=== PATIENT | male | born 1960 | race Caucasian/White ===

== ENCOUNTER → 2017-10-12 | Outpatient (CLI) | payer OTHER ==
[~2017-10-12] MED LIST: ALEVE220 M1 PO; ASPIR 8181 MG PO; DEPO-TESTO100 MG/1 M IM; DEPO-TESTO200 MG/1 M PO; FLEXERIL PO; HYDROCODON-ACE1 EAC7 PO; HYDROCODON-ACE1 EAC8 PO; HYDROCODONE-AP1 EA11 PO; IBUPROFEN200 M2 PO; LISINOPRIL5 MG PO; MOBIC7.5 MG PO; NEURONTIN 300300 M1 PO; OMEPRAZOLE40 MG PO; VICODIN 5-5001 EACH PO; WELLBUTRIN XL150 M1 PO
--- NOTE | 2017-10-18 14:44 | PAINCON ---
[address] [address] PAIN MANAGEMENT CONSULTATION Name: TARIK MARTE [id number] Admission: 10/12/17 Attend Phys: Boone Adrian MD Discharge: Date of : 58 Report #: [id number] THIS REPORT FOR: //name// CC: Lulu Yoo DATE OF SERVICE: 10/12/2017 CHIEF COMPLAINT: Low back pain and pain down in the low back area. HISTORY OF PRESENT ILLNESS: The patient is a 56-year-old gentleman, who has been followed in the pain clinic by Dr. Girma Zarate. This is my first visit with him. He has had pain and discomfort in the lower portion of his back with pain radiating down into his legs. He has undergone epidural steroid injections in the past and gleaned benefits from these. He returns today indicating that he is having low back pain with spasms and tightness down into his left buttocks. He is clean, pain relief with epidural steroid injections in the past. He rates his pain as a 2-3 at this juncture. Notes that the pain is worse when he is active as well as when he is walking stairs, bending, and lifting. Notes that use of the medications, heat, cold, rest, and massage were beneficial. He has not had any complications from the previous treatments. Generally, he receives about an 60%-80% improvement in his pain after epidural treatments. At this juncture, he would like to have his medications renewed and the possibility of proceeding in the near future with a lumbar epidural steroid injection. ALLERGIES: No known drug allergies. CURRENT MEDICATIONS: Include cyclobenzaprine 10 mg 1 p.o. t.i.d., gabapentin 3 tablets at bedtime for a total of 900 mg, hydrocodone 7.5 mg one p.o. q. 6 hours p.r.n., lisinopril 5 mg p.o., Meloxicam 7.5 mg daily, omeprazole 40 mg 1 cap before meals, and testosterone Depo 200 mg 1.5 mL weekly. PAST MEDICAL HISTORY: 1. Symptomatic lumbar radiculopathy, displacement of lumbar intervertebral disk with radiculopathy. 2. Lumbosacral spondylosis with radiculopathy. 3. Lumbar degeneration. 4. Chronic intractable pain. 5. Low testosterone level with testosterone injections. 6. Sleep apnea. The patient does use a CPAP machine. PAST SURGICAL HISTORY: Fingertip reattachment and left knee surgery. SOCIAL HISTORY: He is a [place]. He is working. [place] [address] PAIN MANAGEMENT CONSULTATION Name: TARIK MARTE [facility] [id number] Admission: 10/12/17 Attend Phys: Boone Adrian MD Discharge: Date of : 58 Report #: [id number] Denies use of alcoholic beverages. REVIEW OF SYSTEMS: Questionnaire indicate low back pain with pain radiating down into his legs, low back spasms, and tightness in the left buttocks. PAIN CLINIC ASSESSMENT: 1. History of arthritic pain in the low back. 2. Pain intensity 10/14. 3. Fall risk. The patient has not fallen in the last 3 months. 4. Blood thinner. The patient is not on a blood thinner. 5. Hypertension. The patient is being treated for hypertension. 6. Opioids greater than 6 months. The patient is on opioid medication and has a contract with the pain clinic. 7. Risk management tool. 8. Functional assessment tool. 9. Recreational drug use. The patient denies use of tobacco. 10. Alcohol use. The patient denies use of alcohol. 11. Second evaluation of left knee with removal of a bolus of suture. 12. Lumbosacral symptomatic lumbar radiculopathy, improves with epidural steroid injections, pain radiating down into the left buttocks. 13. Displacement of lumbar intervertebral disk with radiculopathy. 14. Lumbosacral spondylosis with radiculopathy. 15. Lumbar degeneration. 16. Chronic intractable pain. 17. Sleep apnea. PHYSICAL EXAMINATION: VITAL SIGNS: Blood pressure 146/88, heart rate 80, respiratory rate 16, room air saturation 96%, and temperature 98.1. Height 5 feet 7 inches, weight 223 pounds, and BMI is 33.4. GENERAL: A well-developed white male. Appearance appears normal/appropriate for his age. Orientation: The patient is alert and oriented x 3. Affect. The patient's affect is appropriate. HEENT: Normocephalic and atraumatic. The patient's eyes appear that he may have had strabismus as a child, slightly disconjugate gaze. Nasal without problem. Moist buccal membranes. NECK: Without masses or JVD. LUNGS: Clear to auscultation. HEART: Regular rate. ABDOMEN: Nontender. MUSCULOSKELETAL: Appears normal alignment without significant scoliosis, kyphosis, or lordosis. Walks with a slight antalgic gait, complaining of pain and discomfort in the left buttocks. Upper extremity muscle appear symmetric. Muscle strength is judged to be 5/5 without neurologic changes. Lower extremities 5/5. The patient has some low back pain and discomfort in the paraspinous area as well as some left buttock pain [place] [address] PAIN MANAGEMENT CONSULTATION Name: TARIK MARTE [facility] [id number] Admission: 10/12/17 Attend Phys: Boone Adrian MD Discharge: Date of : 58 Report #: [id number] states that he felt like there were some movements going in the lower portion of his back. He is considering seeing Dr. George in the future. Possibility of repeat disk replacement surgery or back fusion. RECOMMENDATIONS: We discussed treatment options with the patient. Risks and benefits of an epidural steroid injection were again reviewed. The patient has gleaned benefits from the injections in the past. States that he has been experiencing may be some movement in the lower portion of his back. He is considering seeing Dr. George in regards to the possibility of back surgery, fusion, or disk replacement. He would like to consider an epidural steroid injection. We will petition his insurance company in that regard. After precertification, we will consider an epidural steroid injection. Risks and benefits of the procedure are known to the patient and they include but are not limited to infection, headache, bleeding, muscle soreness, muscle trauma, and nerve damage. He will return to the pain clinic in the future, at which time we will proceed with an epidural steroid injection should he choose. A script for meloxicam, Flexeril, gabapentin, and Lucas have been rewritten. We would like to thank you for letting us to participate in his care. <ELECTRONICALLY SIGNED> By: Boone Adrian MD 10/18/17 1444 1712 0303N. Salazar Adrian MD /PMT
== END ==
LOC: M.PC 01:32
DX: M47.27 Other spondylosis with radiculopathy, lumbosacral region (principal); M51.16 Intervertebral disc disorders with radiculopathy, lumbar region; G47.30 Sleep apnea, unspecified; I10 Essential (primary) hypertension; Z79.891 Long term (current) use of opiate analgesic; Z72.89 Other problems related to lifestyle

== ENCOUNTER → 2017-11-09 | Outpatient (CLI) | payer OTHER ==
--- NOTE | 2017-11-28 08:16 | PAINCON ---
[address] [address] PAIN MANAGEMENT CONSULTATION Name: ESTUARDOTARIK G [id number] Admission: 11/09/17 Attend Phys: Boone Adrian MD Discharge: Date of : 58 Report #: [id number] THIS REPORT FOR: //name// CC: ISAC CURYR DO Isac Adrian DATE OF SERVICE: 11/09/2017 FOLLOWUP COMPLAINT: "Pain radiating down into the low back and my back feels more unstable." FOLLOWUP HISTORY: The patient is a 57-year-old gentleman who has been seen in the pain clinic in the past because of chronic back pain. He has been evaluated in the past. He has undergone epidural steroid injections and found that these were helpful. He returns today indicating that he continues to have some pain and discomfort in his low back with tightness and spasms, radiating down to the left buttocks area. Epidural injections in the past have been helpful. He denies any change in his bowel or bladder function. Continues to remain active and notes some worsening of his pain with walking stairs, bending, lifting, and other activities of daily living. Use of medications, heat, cold, and rest have been beneficial. Massage has been helpful as well. He generally receives about 60-80% improvement in his pain after epidural steroid injections. He has returned today with the intent of undergoing a lumbar epidural steroid injection to help control his pain and decrease his discomfort. ALLERGIES: No known drug allergies. CURRENT MEDICATIONS: Cyclobenzaprine 10 mg 1 p.o. t.i.d., gabapentin 300 mg 1 p.o. t.i.d. total of 900 per day, hydrocodone 7.5 mg 1 p.o. q. 6 hours p.r.n. pain, lisinopril 5 mg 1 p.o. daily, meloxicam 7.5 mg daily, omeprazole 40 mg 1 tablet before meals, Testosterone Depo 200 mg 1.5 mL weekly. PAIN CLINIC ASSESSMENT: 1. The patient does have some arthritic changes in his low back, associated with osteoarthritis. 2. Pain intensity: He rates his pain intensity as 6-7/10 today. 3. Vital signs: Blood pressure 154/99, heart rate 84, respiratory rate 16, room air saturation 94%, temperature 98. 4. Height 5 feet 7 inches, weight 212 pounds, BMI is 33. 5. The patient is not on a blood thinner. 6. Hypertension: The patient is being treated for hypertension. 7. Opioids greater than 6 months: The patient is receiving opioid medication from the pain clinic and has signed a contract. 8. Risk assessment tool. 9. Functional [place] [address] PAIN MANAGEMENT CONSULTATION Name: TARIK MARTE Room: [facility]#: [id number] Admission: 11/09/17 Attend Phys: Boone Adrian MD Discharge: Date of : 58 Report #: [id number] 10. Recreational drug use: The patient denies use of recreational drugs. 11. Alcohol: The patient denies use of alcoholic beverages. PHYSICAL EXAMINATION: GENERAL: The patient is a well-developed white male. He appears his stated age. He is alert and oriented x 3. Affect is appropriate. Speech is smooth/fluent. HEENT: Normocephalic, atraumatic. Extraocular eye muscles intact. Sclerae is nonicteric. Hearing is within normal limits. Mucous membranes are moist. The patient appears to have had strabismus as a child with a slightly disconjugate gaze. NECK: Without masses or JVD. LUNGS: Clear to auscultation. HEART: Regular rate, normal S1, S2. ABDOMEN: Nontender, without organomegaly. MUSCULOSKELETAL: Appears to have normal alignment without significant scoliosis, kyphosis, or lordosis. The patient walks with a slight antalgic gait, complaining of discomfort in his left buttocks. Upper extremity muscle bulk appears symmetrical. Muscles are judged to be 5/5 without neurological changes. Lower extremity muscle strength is 5/5. The patient has some low back pain and discomfort down into the paraspinous muscles at the L5 area as well. The patient has sensation of some movement in the lower portion of his low back area. IMPRESSION: 1. Lumbar radicular pain with pain radiating down into the L5-S1 area of his left leg with numbness and tingling. 2. Displacement of lumbar intervertebral disk with radiculopathy. 3. Lumbosacral spondylosis with radiculopathy. 4. Sleep apnea. 5. Chronic intractable pain. RECOMMENDATIONS: We discussed treatment options with the patient. Risks and benefits of an epidural steroid injection were discussed. Possible complications of the procedure were then reviewed. They could include but are not limited to infection, increased muscle soreness, bleeding, headache, nerve damage, spinal headache. The patient elects to proceed. PROCEDURE NOTE: The patient was assisted in getting on the fluoroscopy table. His back was sterilely prepped with a Betadine solution. Then, 0.25% bupivacaine was infiltrated into this area. Fluoroscopy used and the anterior, posterior, as well as a lateral approach was used to identify the L5-S1 left paraspinous area. A 0.25% bupivacaine was infiltrated. A 17-gauge Tuohy with loss of resistance technique was used to gain access to the epidural space. There was no CSF, heme, or paresthesia. Total of 80 mg Depo-Medrol, 40 mg triamcinolone, and 2 mL of 0.5% bupivacaine was injected. Total of 8 [place] [address] PAIN MANAGEMENT CONSULTATION Name: TARIK MARTE Room: [facility]#: [id number] Admission: 11/09/17 Attend Phys: Boone Adrian MD Discharge: Date of : 58 Report #: [id number] fluoroscopy time was used. The patient remained in the pain clinic for an appropriate amount of time. He will follow up in the future as needed. We would like to thank you for letting us participate in his care. We hope he continues to improve. <ELECTRONICALLY SIGNED> By: Boone Adrian MD 11/28/17 0816 2240 0547N. Salazar Adrian MD /PHYLLIS
== END | disposition home or self-care (01) ==
LOC: M.PC 01:34
DX: M51.16 Intervertebral disc disorders with radiculopathy, lumbar region (principal); M47.27 Other spondylosis with radiculopathy, lumbosacral region; G89.29 Other chronic pain; G47.33 Obstructive sleep apnea (adult) (pediatric); I10 Essential (primary) hypertension; Z79.899 Other long term (current) drug therapy; Z79.891 Long term (current) use of opiate analgesic

== ENCOUNTER → 2017-11-23 | Outpatient (CLI) | payer OTHER ==
--- NOTE | 2017-11-28 08:16 | PAINCON ---
[address] [address] PAIN MANAGEMENT CONSULTATION Name: ESTUARDOTARIK [id number] Admission: 11/23/17 Attend Phys: Boone Adrian MD Discharge: Date of : 58 Report #: [id number] THIS REPORT FOR: //name// CC: ISAC CURRY DO Isac Adrian DATE OF SERVICE: 11/23/2017 FOLLOWUP COMPLAINT: Pain improved, but there is still some numbness. This pain is going down the side of my leg, down the back of my leg and down into my leg with some numbness and tingling. FOLLOWUP HISTORY: The patient is a 57-year-old gentleman who has been seen in the pain clinic because of chronic back pain. He has undergone epidural steroid injection at the last visit. He notes that his pain is improved, but continues to be problematic. He states that this has been the case in the past. A second epidural steroid injection in a reasonable amount of time has been beneficial. Continues to have pain and discomfort, which radiates down the posterior portion of his left leg. Right leg is not involved. He has had no problems or changes with bowel or bladder dysfunction. States that he eats brand each morning. Keep his bowels regular. Notes that his pain is worse when he is walking stairs, bending, lifting and other activities of daily living. Find a cold, rest and heat can sometimes improved things. Overall, rates his pain as a 6/10 at this juncture. ALLERGIES: No known drug allergies. CURRENT MEDICATIONS: Cyclobenzaprine 10 mg 1 p.o. t.i.d., gabapentin 300 mg 1 p.o. t.i.d., hydrocodone 7.5 mg 1 p.o. q. 6 hours p.r.n. pain, lisinopril 5 mg 1 p.o., Meloxicam 7.5 mg daily, omeprazole 40 mg with meals, testosterone, Depo 200 mg 1.5 mL weekly. PAIN CLINIC ASSESSMENT: 1. The patient has some arthritic changes involving his left knee and had knee replacement. 2. Pain intensity 6/7. PHYSICAL EXAMINATION: VITAL SIGNS: Blood pressure is 139/99, heart rate 78, respiratory rate 16, room air saturation 95%, temperature 98.2. Height 5 feet 7 inches, weight 211 pounds, BMI is 33. The patient is not on a blood thinner. IMPRESSION: [place] [address] PAIN MANAGEMENT CONSULTATION Name: TARIK MARTE Room: [facility]#: [id number] Admission: 11/23/17 Attend Phys: Boone Adrian MD Discharge: Date of : 58 Report #: [id number] 1. Fall. The patient has not fallen in the last 3 months. 2. Hypertension. The patient is being treated for hypertension. 3. Opioids greater than 6 months. The patient is receiving opioid medications from the pain clinic and has a signed a contract. 4. Risk assessment tool. 5. Functional assessment tool. 6. Recreational drug use, denies. 7. Alcohol. Denies use of alcoholic beverages. PHYSICAL EXAMINATION: GENERAL: The patient is a well-developed white male. He appears his stated age. He is alert and oriented x 3. His affect is appropriate. His speech is fluent and smooth. HEENT: Normocephalic, atraumatic. Extraocular eye muscles intact. Sclerae nonicteric. Hearing is within normal limits. Mucous membranes are moist. The patient appears to have some strabismus changes with some disconjugate gaze. NECK: Without masses or JVD. LUNGS: Clear to auscultation. HEART: Regular rate with normal S1, S2. ABDOMEN: Nontender, without organomegaly. MUSCULOSKELETAL: Appears to have normal alignment without significant scoliosis, kyphosis or lordosis. The patient walks with a slight antalgic gait frame favoring his left leg. Complains of pain and discomfort down the left buttocks. Muscle strength is judged to be 5/5 for the major muscle groups in the lower extremity. Upper extremity muscle strength 5/5 for the major muscle groups with symmetry without sensory changes. IMPRESSION: 1. Lumbar radiculopathy involving the left leg in the L5-S1 area with continued pain down the left leg with numbness and tingling. 2. Displacement of lumbar intervertebral disk with radiculopathy. 3. Lumbosacral spondylosis with radiculopathy. 4. Sleep apnea. 5. Hypertension. 6. Low testosterone. RECOMMENDATIONS: We discussed treatment options with the patient. Risks and benefits of an epidural steroid injection were again reviewed. Possible complication of the procedure were discussed. They could include, but are not limited to infection, increased muscle soreness, bleeding, nerve damage, paresis, spinal headache. The patient elects to proceed. PROCEDURE NOTE: The patient was placed in the prone position. Fluoroscopy was used to identify the L5-S1 interspace using anterior, posterior as well as lateral viewing. The area had been sterilely prepped with Betadine. 0.25% bupivacaine was infiltrated in the L5-S1 area on the left parasp[place] [address] PAIN MANAGEMENT CONSULTATION Name: TARIK MARTE Room: [facility]#: [id number] Admission: 11/23/17 Attend Phys: Boone Adrian MD Discharge: Date of : 58 Report #: [id number] total of 80 mg Depo-Medrol, 40 mg triamcinolone and 2 mL of 0.25% bupivacaine was injected. Total of 6 seconds fluoroscopy time was used. A Band-Aid was applied. There was no bleeding. He was taken to the recovery room where he remained for an appropriate amount of time. He will follow up in the future as needed. We would like to thank you for letting us participate in his care. We hope he continues to improve pain had decreased to 0 at the time of discharge. <ELECTRONICALLY SIGNED> By: Boone Adrian MD 11/28/17 0816 0950 1458N. Salazar Adrian MD /[facility]
== END | disposition home or self-care (01) ==
LOC: M.PC 03:24
DX: M51.16 Intervertebral disc disorders with radiculopathy, lumbar region (principal); M47.27 Other spondylosis with radiculopathy, lumbosacral region; G89.29 Other chronic pain; G47.33 Obstructive sleep apnea (adult) (pediatric); I10 Essential (primary) hypertension; E29.1 Testicular hypofunction; Z79.899 Other long term (current) drug therapy; Z79.891 Long term (current) use of opiate analgesic; Z98.890 Other specified postprocedural states

== ENCOUNTER → 2018-01-11 | Outpatient (CLI) | payer OTHER ==
--- NOTE | 2018-01-17 14:14 | PAINCON ---
[address] [address] PAIN MANAGEMENT CONSULTATION Name: ESTUARDOTARIK Room: [facility] Krunal#: [id number] Admission: 01/11/18 Attend Phys: Boone Adrian MD Discharge: Date of : 58 Report #: [id number] THIS REPORT FOR: //name// CC: Lulu Adrian DATE OF SERVICE: 01/11/2018 CHIEF COMPLAINT: Here for medication renewal. FOLLOWUP HISTORY: The patient is a 57-year-old gentleman who has been followed in the Pain Clinic because of chronic pain. He suffers lumbar radicular pain. He has undergone epidural steroid injections episodically. He finds that those are beneficial. He has returned today for renewal of his medications. He continues to have some spasms in his back. He is not having much pain radiating down into his leg and is not having much tingling at this juncture. He is taking hydrocodone. He finds that this medication is helpful. He has had no problems with his thinking or sensorium with use of this medication. He talked with his primary physician. They think that he should be on aspirin type medication. He found that the Meloxicam was helpful. He does take it b.i.d. He noticed that once he started taking aspirin that seems like the medication is not as effective. He notes that pain continues to be helped with medications, use of hot and cold, as well as using rest and massage. He finds that hydrocodone 7.5 mg is helpful and he would like to have his medications renewed. He rates his pain as a 4/10 at this juncture. He continues to use Flexeril and gabapentin to help control the low back discomfort. ALLERGIES: No known drug allergies. CURRENT MEDICATIONS: Cyclobenzaprine 10 mg one p.o. t.i.d., gabapentin 300 mg one p.o. t.i.d., hydrocodone 7.5 mg one p.o. q. 6 hours p.r.n. pain, lisinopril 5 mg one daily, Meloxicam 7.5 mg b.i.d., omeprazole 40 mg with meals, testosterone, Depo 200 mg weekly. PAIN CLINIC ASSESSMENT: 1. The patient has some arthritic changes involving his left knee and has had a knee replacement. 2. Height 5 feet 7 inches, weight 210 pounds, BMI 33. 3. Vital signs: Blood pressure 150/100, heart rate 77, respiratory rate 16, room air saturation 96%, temperature 97.7. 4. Pain intensity: 4/10. 5. Fall risk: The patient has not fallen in the last 3 months. 6. Blood thinner: The patient is not on a blood thinning agent. 7. History of hypertension: The patient is being treated for hypertension. 8. Opioid therapy: The patient is receiving medications through the Pain Clinic and only gets [place] [address] PAIN MANAGEMENT CONSULTATION Name: TARIK MARTE Room: [facility]#: [id number] Admission: 01/11/18 Attend Phys: Boone Adrian MD Discharge: Date of : 58 Report #: [id number] 9. Risk assessment tool. 10. Functional assessment tool. 11. Recreational drug use: The patient denies use of recreational drugs. 12. Tobacco: The patient denies use of tobacco. 13. Alcohol: The patient denies use of alcoholic beverages on a regular basis. PHYSICAL EXAMINATION: GENERAL: The patient is a well-developed white male. He appears his stated age. He is alert and oriented x 3. His affect is appropriate. His speech is fluent and smooth. HEENT: Normocephalic, atraumatic. Extraocular eye muscles intact. Sclerae nonicteric. Hearing is within normal limits. Mucous membranes are moist. The patient appears to have some strabismus changes with disconjugate gaze. NECK: Without masses or JVD. LUNGS: Clear to auscultation, without crackles or rales. ABDOMEN: Nontender, without organomegaly. MUSCULOSKELETAL: Normal alignment, without significant scoliosis, kyphosis, or lordosis. The patient walks with a slight antalgic gait, favoring his left leg. Muscle strength is judged to be 5/5 for the major muscle groups in the lower extremities. Upper extremity muscle strength 5/5 with symmetry and without sensory changes. IMPRESSION: 1. Lumbar radiculopathy involving the left leg, in the L5-S1 area, improved with epidural steroid injection. 2. Displacement of lumbar intervertebral disc with radiculopathy. 3. Lumbosacral spondylosis with radiculopathy. 4. Sleep apnea. 5. Hypertension. 6. Low testosterone. RECOMMENDATIONS: We discussed treatment options with the patient. At this juncture, we will continue with his current medications. We discussed use of nonsteroidal anti-inflammatory medications. He will take Mobic 7.5 mg two tablets for a total of 15 mg in the morning. He will then take his aspirin later on in the evening to see whether or not the aspirin effect is dampening the pain relief that he is receiving from the Mobic medication. A script for his medications of meloxicam, cyclobenzaprine, gabapentin and hydrocodone has been written. The patient will call us if he has any problems [place] [address] PAIN MANAGEMENT CONSULTATION Name: TARIK MARTE Room: [facility]#: [id number] Admission: 01/11/18 Attend Phys: Boone Adrian MD Discharge: Date of : 58 Report #: [id number] We would like to thank you for letting us participate in his care. We hope he continues to improve. <ELECTRONICALLY SIGNED> By: Boone Adrian MD 01/17/18 1414 1455 1734N. Salazar Adrian MD /nt
== END ==
LOC: M.PC 01-04 00:49
DX: M47.27 Other spondylosis with radiculopathy, lumbosacral region (principal); M51.16 Intervertebral disc disorders with radiculopathy, lumbar region; I10 Essential (primary) hypertension; G47.30 Sleep apnea, unspecified; E29.1 Testicular hypofunction

== ENCOUNTER → 2018-04-19 | Outpatient (CLI) | payer OTHER ==
--- NOTE | 2018-05-21 10:00 | PAINCON ---
[address] [address] PAIN MANAGEMENT CONSULTATION Name: TARIK MARTE [id number] Admission: 04/19/18 Attend Phys: Boone Adrian MD Discharge: Date of : 58 Report #: [id number] THIS REPORT FOR: //name// CC: Lulu Adrian DATE OF SERVICE: 04/19/2018 CHIEF COMPLAINT: "I was at work and kicked a panel to close it, noted pain in my leg." FOLLOWUP HISTORY: The patient is a 57-year-old gentleman who has been followed in the pain clinic because of history of lumbar radiculopathy. Primarily, his pain has been on the left side. The patient states that he was at work. He was repairing a panel. 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 He kicked it. Noticed pain and discomfort in the lower portion of his back. He then had pain, which is quite severe. He lay down on the floor. After lying on the floor for a little bit, he was unable to get up. Over the last 3 weeks, he has noted continued pain and discomfort in the lower portion of his back. He has had some numbness and tingling sensation down in the right side of his leg. There is weakness associated with it. It radiates from the buttocks, posterior leg, down to the calf with numbness, tingling and burning sensation. The patient has not been able to go to work because of this pain. He is unable to bend over and tie his shoes. Denies any bowel or bladder comfort. ALLERGIES: No known drug allergies. MEDICATIONS: Cyclobenzaprine 10 mg 1 p.o. t.i.d., gabapentin 300 mg p.o. t.i.d., hydrocodone 7.5 mg 1 p.o. q. 6 hours p.r.n. pain, lisinopril 5 mg 1 daily, Meloxicam 7.5 mg b.i.d., omeprazole 40 mg with meals, Depo-Testosterone 200 mg weekly. PAIN CLINIC ASSESSMENT: 1. The patient has some arthritic changes involving his left knee and has had a knee replacement. 2. Height 5 feet 7 inches, weight 210 pounds, BMI is 33.2. 3. Vital signs: Blood pressure 159/79, heart rate 80, respiratory rate 18, room air saturation 95%, temperature 98.2. 4. Pain score 4/10. 5. Fall risk. The patient has not fallen in the last 3 months. 6. Blood thinner. The patient is not on a blood thinning medication. 7. History of hypertension. The patient has not been treated for hypertension. 8. Opioid therapy greater than 6 weeks. The patient is not on opioid medications on a regular basis. 9. Risk assessment tool, low for use of opioid medication. 10. [place] [address] PAIN MANAGEMENT CONSULTATION Name: TARIK MARTE Room: [facility]#: [id number] Admission: 04/19/18 Attend Phys: Boone Adrian MD Discharge: Date of : 58 Report #: [id number] 11. Recreational drug use. The patient denies use of recreational drugs. 12. Tobacco: The patient denies use of tobacco. 13. Alcohol: The patient denies use of alcoholic beverages on a regular basis. PHYSICAL EXAMINATION: GENERAL: The patient is a well-developed, well-nourished white male. He appears his stated age. He is alert and oriented x 3. His affect is appropriate. His speech is fluent and smooth. HEENT: Normocephalic, atraumatic. Extraocular eye muscles intact. Sclerae nonicteric. Hearing is within normal limits. Mucous membranes moist. The patient appears to have some evidence of strabismus changes with some disconjugate gaze. NECK: Without masses or JVD. LUNGS: Clear to auscultation without rhonchi or rales. ABDOMEN: Nontender, without organomegaly. MUSCULOSKELETAL: Normal alignment without significant scoliosis, kyphosis or lordosis. The patient walks with a slight antalgic gait, has pain and discomfort in the right leg. He feels that the left leg today is not very problematic. The right leg notes some numbness, tingling down in the L5-S1 distribution. Positive straight leg raise with some sensory changes. IMPRESSION: 1. Lumbar radiculopathy involving the right leg. It radiates down the L5-S1 area. 2. History of left lumbar radiculopathy, improved and stable. 3. Displacement of lumbar intervertebral disk with radiculopathy. 4. Lumbosacral spondylosis with radiculopathy. 5. Sleep apnea. 6. Hypertension. 7. Low testosterone. RECOMMENDATIONS: We discussed treatment options with the patient. He is having pain, which is quite problematic. He has been unable to go to work. This has significantly impacted his life over the last 3 weeks. The patient has returned to the pain clinic with a desire to undergo an epidural steroid injection to help quell the pain, so that he can return to normal activities and return to work. We discussed the possible complication of the procedure, which could include but are not limited to infection, increased muscle soreness, headache, bleeding, worsening of pain, no improvement in pain and the patient elects to proceed. PROCEDURE NOTE: The patient was taken to the procedure area. He was assisted on getting on the examination table. His back was sterilely prepped with a Betadine solution. Fluoroscopy using anterior, posterior as well as lateral viewing were implemented. 0.25% bupivacaine was infiltrated at the L5-S1 area with a right paracentral trajectory. There was no CSF, heme [place] [address] PAIN MANAGEMENT CONSULTATION Name: ESTUARDOTARIK Room: [facility]#: [id number] Admission: 04/19/18 Attend Phys: Boone Adrian MD Discharge: Date of : 58 Report #: [id number] 17-gauge Tuohy with loss of resistance technique was used to gain access to the epidural space. A total of 80 mg Depo-Medrol, 40 mg triamcinolone and 2 mL of 0.25% bupivacaine was injected. The patient tolerated the procedure well. There were no complications. He remained in the pain clinic for an appropriate amount of time. A total of about 8 seconds fluoroscopy time was used. He will follow up in the future as needed. We would like to thank you for letting us participate in his care. We hope he continues to improve. <ELECTRONICALLY SIGNED> By: Boone Adrian MD 05/21/18 [id number]. Salazar Adrian MD /amita
== END | disposition home or self-care (01) ==
LOC: M.PC 04:04
DX: M51.16 Intervertebral disc disorders with radiculopathy, lumbar region (principal); G47.30 Sleep apnea, unspecified; I10 Essential (primary) hypertension; Z68.33 Body mass index [BMI] 33.0-33.9, adult; Z79.899 Other long term (current) drug therapy

== ENCOUNTER → 2018-05-24 | Outpatient (CLI) | payer OTHER ==
--- NOTE | 2018-06-20 16:08 | PAINCON ---
[address] [address] PAIN MANAGEMENT CONSULTATION Name: TARIK MARTE [id number] Admission: 05/24/18 Attend Phys: Boone Adrian MD Discharge: Date of : 58 Report #: [id number] THIS REPORT FOR: //name// CC: Lulu Adrian DATE OF SERVICE: 05/24/2018 CHIEF COMPLAINT: Low back pain, right side worse than left. HISTORY OF PRESENT ILLNESS: The patient is a very pleasant 57-year-old gentleman, who has been followed in the pain clinic because of lumbar radiculopathy. He has pain and discomfort in the L5-S1 dermatomal distribution. He did have some pain in the left side in the past. Pain in the right side is most problematic. He states that the pain has been quite overwhelming., it has been quite a bit of discomfort. He has missed work lately. He has been sleeping in a recliner because of the intensity of pain. He has been moving very slowly. His is a masseuse, she massages his back, which is helpful. She constantly tells him that there is quite a bit of muscle tenderness and that he should relax in the right lower back and buttocks area. He states that he tries to find it difficult. He has continued to use hydrocodone on an occasional basis. He feels that the Flexeril is helpful. He feels that the gabapentin medications at bedtime may be helpful. He has returned today for another epidural steroid injection. He is getting to the point, where he is considering the possibility of a surgical intervention if the pain continues to be problematic. MEDICATIONS: He is on cyclobenzaprine 10 mg 1 p.o. t.i.d., gabapentin 300 mg p.o. t.i.d., hydrocodone 7.5 mg one p.o. q.6 hours p.r.n., lisinopril 5 mg 1 daily, Meloxicam 7.5 mg b.i.d., omeprazole 40 mg with meal, and Depo-Testosterone 200 mg weekly. ALLERGIES: The patient has no known drug allergies. PAIN CLINIC ASSESSMENT AND PQRS. 1. The patient has some arthritic changes involving his left knee and has had it replaced. 2. The patient is not being treated for rheumatoid arthritis. 3. Pain intensity is 6/10. 4. Fall risk. The patient has not fallen in the last 3 months. 5. Blood thinner. The patient is not on a blood thinning medication. 6 History of hypertension. The patient is not being treated for hypertension. 7. Opioid therapy greater than 6 weeks. The [facility]. 8. Risk assessment tool, low for use of opioid medication. 9. [place] [address] PAIN MANAGEMENT CONSULTATION Name: TARIK MARTE [facility] [id number] Admission: 05/24/18 Attend Phys: Boone Adrian MD Discharge: Date of : 58 Report #: [id number] 10. Recreational drug use. The patient denies use of recreational drugs. 11. Tobacco: The patient denies use of tobacco. 12. Alcohol: The patient denies use of alcoholic beverages. PHYSICAL EXAMINATION: GENERAL: The patient is a well-developed and well-nourished white male. He appears his stated age. He is alert and oriented x 3. His affect is appropriate. Speech is fluent and smooth. Height is 5 feet 7 inches, weight is 210 pounds, and BMI is 32.9. VITAL SIGNS: Blood pressure is 154/110, heart rate is 94, respiratory rate is 16, room air saturation is 95%, and temperature is 97.9. HEENT: Normocephalic, atraumatic. Extraocular eye muscles intact. Sclerae nonicteric. Mucous membranes are moist. The patient appears to have some evidence of strabismus changes with a slightly disconjugate gaze. NECK: Without masses or JVD. LUNGS: Clear to auscultation without rhonchi or rales. ABDOMEN: Nontender, without organomegaly. MUSCULOSKELETAL: Normal alignment without significant scoliosis, kyphosis, or lordosis. The patient has pain and discomfort with pain radiating down into the right leg. He notes tension and muscle spasm in the buttocks, posterior thigh down into the calf with numbness and tingling in the L5-S1 distribution. Movements of his leg can exacerbate the discomfort. Straight leg raising is positive. IMPRESSION: 1. Lumbar radiculopathy involving the right leg with radiation down to the L5-S1 area. 2. History of left lumbar radiculopathy, which has improved and seems stable. 3. Displacement of lumbar intervertebral disk with radiculopathy. 4. Lumbosacral spondylosis with radiculopathy. 5. Sleep apnea. 6. Hypertension. 7. Low testosterone. RECOMMENDATIONS: We have discussed treatment options with the patient. Risks and benefits of an epidural steroid injection were again reviewed. They include but are not limited to infection, increased muscle soreness, headache, bleeding, worsening of pain, paralysis, spinal headache. The patient elects to proceed. PROCEDURE NOTE: The patient was taken to the procedure area. He was assisted in getting on the examination table. He was in the prone position. A pillow was placed under his abdomen to bolster and improve positioning. A fluoroscopy exam with anterior, posterior as well as lateral viewing were implemented. The patient's back had been sterilely prepped with a Betadine solution. A 0.25% of bupivacaine was infiltrated in the right L5-S1 area. A right paraspinal approach was used. A total of 80 mg of Depo-Medrol, 40 mg of triamcinolone, [place] [address] PAIN MANAGEMENT CONSULTATION Name: TARIK MARTE Room: [facility]#: [id number] Admission: 05/24/18 Attend Phys: Boone Adrian MD Discharge: Date of : 58 Report #: [id number] 2 mL of 0.25% bupivacaine was injected. The patient tolerated the procedure well. There were no complications. He remained in the pain clinic for an appropriate amount of time. A total of 8 seconds of fluoroscopy time was used. There were no complications. He was taken to the recovery room, where he remained for an appropriate amount of time. He will follow up in the future as needed. We would like to thank you for letting us to participate in his care. We hope he continues to improve. <ELECTRONICALLY SIGNED> By: Boone Adrian MD 06/20/18 1608 [id number]. MD JOSE MANUEL Rome
== END | disposition home or self-care (01) ==
LOC: M.PC 05:30
DX: M51.16 Intervertebral disc disorders with radiculopathy, lumbar region (principal); M47.27 Other spondylosis with radiculopathy, lumbosacral region; G89.29 Other chronic pain; I10 Essential (primary) hypertension; Z79.891 Long term (current) use of opiate analgesic; Z79.899 Other long term (current) drug therapy; G47.33 Obstructive sleep apnea (adult) (pediatric); Z79.82 Long term (current) use of aspirin; Z96.652 Presence of left artificial knee joint

== ENCOUNTER → 2018-06-14 | Outpatient (CLI) | payer OTHER ==
--- NOTE | ~2018-06-14 | PAINCON ---
[address] [address] PAIN MANAGEMENT CONSULTATION Name: ESTUARDOTARIK Room: [facility]#: [id number] Admission: 06/14/18 Attend Phys: Boone Adrian MD Discharge: Date of : 58 Report #: [id number] THIS REPORT FOR: //name// CC: Lulu Adrian DATE OF SERVICE: 06/26/2018 FOLLOWUP HISTORY: The pain has improved, but is still radiating down into the right leg with muscle spasms. HISTORY: The patient is a 57-year-old gentleman who has been followed in the pain clinic because of lumbar radiculopathy. He has undergone epidural steroid injections in the past. He returns today indicating that he is continuing to have some pain and discomfort in the L5-S1 dermatomal distribution. He received about 70-80% improvement in the epidural steroid injection at the last visit. He is requesting another injection at this point. He has noticed a gradual recurrence of his pain. Overall, things are much better. Continues to use hydrocodone and Flexeril as well as gabapentin to help control the pain. ALLERGIES: No known drug allergies. CURRENT MEDICATIONS: Cyclobenzaprine 10 mg 1 p.o. t.i.d., gabapentin 300 mg 1 p.o. t.i.d., hydrocodone 7.5 mg 1 p.o. 4-6 hours p.r.n., lisinopril 5 mg daily, meloxicam 7.5 mg b.i.d., omeprazole 40 mg with meals, Depo-Testosterone 200 mg weekly. PAIN CLINIC ASSESSMENT/PQRS: 1. The patient is being treated for osteoarthritic changes involving his left knee and has had it replaced. The patient is not being treated for rheumatoid arthritis. 2. Vital signs: Blood pressure 161/94, heart rate 82, respiratory rate 18, room air saturation 95%, temperature is 97.9, height 5 feet 7 inches, weight 213 pounds, BMI is 33. 3. Fall risk. The patient has not fallen in the last 3 months. 4. Blood thinner. The patient is not on a blood thinning medication. 5. Hypertension. The patient is being treated for hypertension. 6. Opioids greater than 6 weeks. The [facility]. 7. Risk assessment tool, low for opioid use. 8. Functional assessment tool. 9. Recreational drug use. The patient denies use of recreational drugs. 10. Tobacco: The patient denies use of tobacco. 11. Alcohol: The patient denies use of alcoholic beverages. PHYSICAL EXAMINATION: [place] [address] PAIN MANAGEMENT CONSULTATION Name: TARIK MARTE Room: [facility]#: [id number] Admission: 06/14/18 Attend Phys: Boone Adrian MD Discharge: Date of : 58 Report #: [id number] GENERAL: The patient is well-developed, well-nourished white male. Appears his stated age. He is alert and oriented x 3. His affect is appropriate. Speech is fluent. HEENT: Normocephalic, atraumatic. Extraocular eye muscles intact. Sclerae nonicteric. Mucous membranes are moist. The patient has some evidence of strabismus with a slight disconjugate gauge. NECK: Without masses or JVD. LUNGS: Clear to auscultation without rhonchi or rales. ABDOMEN: Nontender, without organomegaly. MUSCULOSKELETAL: Alignment normal without significant scoliosis, kyphosis or lordosis. The patient has pain and discomfort that is radiating down the posterior portion of his right leg into his thigh and into the calf in the L5-S1 distribution. There is numbness, tingling and sensory changes. Movement of his leg. Straight leg raising does show a positive straight leg raise. IMPRESSION: 1. Lumbar radiculopathy involving the right leg with radiation down into the L5-S1 area. History of left lumbar radiculopathy, which is improved and seems to be stabilizing at this juncture. Displacement of lumbar intervertebral disk with radiculopathy. 2. Lumbosacral spondylosis with radiculopathy. 3. Sleep apnea. 4. Hypertension. 5. Low testosterone. RECOMMENDATIONS: We discussed treatment options with the patient. Risks and benefits of an epidural steroid injection, which could include but are not limited to infection and increased muscle soreness, headache, worsening of pain, paralysis, the patient elects to proceed. PROCEDURE NOTE: The patient was taken to the procedure area. He was placed in the prone position. A pillow was placed under his abdomen to improve positioning. Fluoroscopy using anterior and posterior viewing were implemented. The right L5-S1 area was sterilely prepped. A 25-gauge needle was then used to anesthetize at the L5-S1 area. A 17-gauge Tuohy with loss of resistance technique was used to gain access to the epidural space. There was no CSF, heme or paresthesia. Total of 80 mg Depo-Medrol, 40 mg triamcinolone and 2 mL of 0.25% bupivacaine was injected at the L5-S1 area. The patient tolerated the procedure well. A total of 10 seconds fluoroscopy time was used. The patient's pain decreased to 1-2 at the time of discharge. He will follow up in the future as needed. We would like to thank you for letting us participate in his care. We hope he continues to improve. By: [id number]. Salazar Adrian MD /nt
== END | disposition home or self-care (01) ==
LOC: M.PC 05:11
DX: M51.16 Intervertebral disc disorders with radiculopathy, lumbar region (principal); M47.27 Other spondylosis with radiculopathy, lumbosacral region; I10 Essential (primary) hypertension; G47.33 Obstructive sleep apnea (adult) (pediatric); E29.1 Testicular hypofunction; Z79.899 Other long term (current) drug therapy; Z79.891 Long term (current) use of opiate analgesic; Z96.652 Presence of left artificial knee joint; Z98.890 Other specified postprocedural states; Z79.82 Long term (current) use of aspirin

== ENCOUNTER → 2018-07-19 | Outpatient (CLI) | payer OTHER ==
--- NOTE | ~2018-07-19 | PAINCON ---
[address] [address] PAIN MANAGEMENT CONSULTATION Name: ESTUARDOTARIK G Room: [facility].#: [id number] Admission: 07/19/18 Attend Phys: Boone Adrian MD Discharge: Date of : 58 Report #: [id number] THIS REPORT FOR: //name// CC: Lulu Yoo DATE OF SERVICE: 07/19/2018 FOLLOWUP HISTORY: "____ MRI and I have come by to review it with you." FOLLOWUP HISTORY: The patient is a 57-year-old gentleman who has been followed in the pain clinic because of lumbar radiculopathy. He has undergone a number of lumbar epidural steroid injections over time. He has noted a worsening and change in his pain. He underwent an MRI in the interim. Continues to have pain and discomfort in spite of the epidural steroid injections, which in the past in the L5-S1 dermatomal distribution provided some benefit. He underwent an injection and notes that his pain has returned. Continues to be quite problematic. He is unable to get comfortable as a result of that. This makes activities of daily living such as working more difficult. He is experiencing frequent back spasms. Notes some numbness, tingling in the low-back area bilaterally, left side greater than right. Notes that sleep is difficult. He has been sleeping in a recliner because of the discomfort. In spite of hydrocodone and Flexeril as pain medications, continue to be problematic. Activity such as walking, standing, lifting, and bending worsens as the day goes on. He has undergone an MRI and his return to the pain clinic for review of this. ALLERGIES: No known drug allergies. MEDICATIONS: Cyclobenzaprine 10 mg 1 p.o. t.i.d., gabapentin 300 mg 1 p.o. t.i.d., hydrocodone 7.5 mg 1 p.o. q.4-6 hours p.r.n., lisinopril 5 mg daily, meloxicam 7.5 mg b.i.d., omeprazole 40 mg with meal, depo-testosterone 200 mcg weekly. PAIN CLINIC ASSESSMENT/PQRS: 1. The patient is being treated for osteoarthritic changes in the lower portion of his back and some arthritic changes in his left knee, which has been replaced. The patient is not being treated for rheumatoid arthritis. 2. Vital Signs: Blood pressure is 147/81, heart rate 86, respiratory rate 16, room air saturation is 94%, Temperature is 98.2. 3. Pain intensity 3.5/10. 4. Fall risk. The patient has not fallen in the last 3 months. 5. Blood thinner. The patient is not on a blood thinning medication. 6. Hypertension. He is being treated for hypertension. 7. Opioid greater than 6 weeks. The patient receives his medications from [address] [place] [address] PAIN MANAGEMENT CONSULTATION Name: TARIK MARTE Room: [facility]#: [id number] Admission: 07/19/18 Attend Phys: Boone Adrian MD Discharge: Date of : 58 Report #: [id number]. 8. Risk assessment tool, low for opioid use. 9. Functional assessment tool. 10. Recreational drug use. The patient denies use of recreational drugs. 11. Tobacco: The patient denies use of tobacco. 12. Alcohol: The patient denies use of alcoholic beverages. PHYSICAL EXAMINATION: GENERAL: The patient is a well-developed, well-nourished white male. Appears his stated age. He is alert and oriented x 3. Affect is appropriate. Speech is fluent. HEENT: Normocephalic, atraumatic. Extraocular eye muscles intact. Sclerae nonicteric. The patient has a somewhat disconjugate gaze with some evidence of strabismus in the past. NECK: Without masses or JVD. LUNGS: Clear to auscultation without rhonchi or rales. ABDOMEN: Nontender, without organomegaly. MUSCULOSKELETAL: Alignment normal without significant scoliosis, kyphosis, or lordosis. The patient has pain and discomfort in the lower portion of his back with pain radiating down in the right portion of his leg as well as in the left L5-S1 area in the calf. Does have some numbness, tingling, and sensory changes. Movement in his leg more difficult with certain activities. Straight leg raise is positive. LABORATORY DATA: MRI of the lumbar spine dated on 07/16/2018. 1. L3-L4, there is mild disk space narrowing and mild central annular bulging. Mild bilateral facet arthropathy is present and there is associated mild left foraminal narrowing. No evidence of disk herniation, spinal stenosis, or right foraminal narrowing. Thecal sac 1.3 cm AP. 2. L4-L5, there is disk degeneration with this desiccation, mild disk space narrowing and mild central annular bulging. There is effacement of the anterior epidural fat and mild flattening of the anterior aspect of the thecal sac. There is mild bilateral facet arthropathy also present and associated mild bilateral foraminal narrowing. No evidence of annular disk tear, focal disk herniation, or significant stenosis of the central spinal canal. Thecal sac 1.1 cm AP. 3. L5-S1, there is disk degeneration with disk desiccation and [id number] disk space narrowing. There is grade 1 spondylolisthesis measuring approximately 1 cm associated with bilateral spondylosis. There is a large focal extruded disk fragment present in the left anterior epidural space demonstrating moderately marked cranial migration. There is a large extruded and migrated disk fragment, which is a lobulated in contour and measures approximately 1.2 x 0.8 x 1.4 cm. This extends caudally nearly to the upper margin of the left pedicle of L5 within the left lateral recess of the L5. This produces extrinsic compression of the thecal sac and likely compression of both the left L5 and exiting and transiting left S1 nerve roots. The combination of the large extruded disk fragment and anterolisthesis [place] [address] PAIN MANAGEMENT CONSULTATION Name: TARIK MARTE Room: [facility]#: [id number] Admission: 07/19/18 Attend Phys: Boone Adrian MD Discharge: Date of : 58 Report #: [id number] of the central spinal canal and results in mild central canal stenosis. There is also bilateral foraminal narrowing associated with the spondylolisthesis. The thecal sac 0.8 cm AP. IMPRESSION: 1. Lumbar radiculopathy involving the right leg with radiation down into the L5-S1 area. History of left lumbar radiculopathy, which is problematic as well. 2. Lumbosacral spondylosis with radiculopathy. 3. Spondylolisthesis 1 cm grade 1. 4. Spondylosis L5-S1. 5. Sleep apnea. 6. Hypertension. 7. Low testosterone. RECOMMENDATIONS: We discussed the findings with the patient. He brought his disc. A thorough review of the findings were discussed with the patient. At this juncture, since his pain continues to be problematic. We would recommend that he consider visiting a surgeon. A script for hydrocodone has been written. He will follow up in the future as needed. We would like to thank you for letting us participate in his care. We hope he continues to improve. By: [id number]. Salazar Adrian MD /PHYLLIS
== END ==
LOC: M.PC 05:28
DX: M47.27 Other spondylosis with radiculopathy, lumbosacral region (principal); M43.16 Spondylolisthesis, lumbar region; G47.30 Sleep apnea, unspecified; I10 Essential (primary) hypertension; E29.1 Testicular hypofunction

== ENCOUNTER → 2018-10-18 | Outpatient (CLI) | payer OTHER ==
--- NOTE | ~2018-10-18 | PAINCON ---
[address] [address] PAIN MANAGEMENT CONSULTATION Name: TARIK MARTE Room: [facility] MIRZA ThomasElsa#: [id number] Admission: 10/18/18 Attend Phys: Boone Adrian MD Discharge: Date of : 58 Report #: [id number] THIS REPORT FOR: //name// CC: Lulu Adrian DATE OF SERVICE: 10/18/2018 PRIMARY CARE PHYSICIAN: Lulu Hancock DO CHIEF COMPLAINT: Numbness down in the left leg. FOLLOWUP HISTORY: The patient is a 58-year-old gentleman who has been followed in the pain clinic because of chronic pain. He is undergoing epidural steroid injections because of lumbar radiculopathy, which radiates down to his left leg. He has had a recurrence of this pain and notes it is quite problematic. Rates it a 5-01/14. He has considered following up with a surgeon. At this juncture, is not a good time. His has had a recurrence of her health problems, has had cancer. At this juncture, she is being treated for recurrence of her cancer and is hoping to go in remission. The patient feels his medications of hydrocodone, gabapentin and meloxicam with Flexeril are helpful. Notes the pain is worse with activity such as walking, standing, bending and lifting. Uses medications, heat, cold massage and rest have been helpful. He has not noticed any significant change in bowel or bladder dysfunction. The patient has returned today with the intention of undergoing an epidural steroid injection to help quell the pain and discomfort he is experiencing. ALLERGIES: No known drug allergies. CURRENT MEDICATIONS: Cyclobenzaprine 10 mg 1 p.o. t.i.d., gabapentin 300 mg 1 p.o. t.i.d., hydrocodone 7.5 mg 1 p.o. q.4-6h. p.r.n., lisinopril 5 mg daily, meloxicam 7.5 mg b.i.d., omeprazole 40 mg with meals, Depo-testosterone 200 mcg weekly. PAIN CLINIC ASSESSMENT/PQRS: 1. The patient is being treated for osteoarthritic changes in his lower back. Has some arthritic changes in his left knee and has had this replaced. The patient is not being treated for rheumatoid arthritis. 2. Height 5 feet 7 inches, weight 213 pounds, BMI is 33. 3. Vital signs: Blood pressure 151/94, heart rate 86, respiratory rate 16, room air saturation is 95%, temperature 98.2. 4. Pain intensity 5-6/10. 5. Fall history: The patient has not fallen in the last 3 months. 6. Blood thinner. The patient is not on a blood thinning medication. 7. Hypertension. The patient is being treated for hypertension. 8. Opioids greater than 6 weeks. The [place] [address] PAIN MANAGEMENT CONSULTATION Name: TARIK MARTE LILO Room: [facility]#: [id number] Admission: 10/18/18 Attend Phys: Boone Adrian MD Discharge: Date of : 58 Report #: [id number] source, pain clinic. 9. Risk assessment tool, low for opioid use. 10. Functional assessment tool. 11. Recreational drug use, the patient denies use of recreational drugs. 12. Tobacco: The patient denies use of tobacco. 13. Alcohol: The patient denies use of alcoholic beverages on a regular basis. PHYSICAL EXAMINATION: GENERAL: The patient is a well-developed, well-nourished white male. Appears his stated age. He is alert and oriented x 3. His affect is appropriate. Speech is fluent. HEENT: Normocephalic, atraumatic. Extraocular eye muscles intact. Sclerae nonicteric. Mucous membranes are moist. NECK: Without JVD or adenopathy. The patient does have some evidence of strabismus. ABDOMEN: Nontender, without organomegaly. MUSCULOSKELETAL: Without significant scoliosis, kyphosis or lordosis. The patient has pain and discomfort that is radiating down into the left area of his leg with numbness and tingling. Has had some tingling in the right side with a burning sensation at times. Muscle strength is judged to be 5/5 for the major muscle groups in the upper extremity and muscle strength in the lower extremity 5-/5 for the left lower extremity. Positive straight leg raise on the left. IMPRESSION: 1. Lumbar radiculopathy involving the left and right leg, left most problematic today. Lumbar spondylosis with radiculopathy. 2. Spondylolisthesis 1 cm, grade 2. 3. 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 4. Sleep apnea. 5. Hypertension. 6. Low testosterone. 7. has had a recurrence of her cancer and is undergoing treatment at this juncture. RECOMMENDATIONS: We discussed treatment options with the patient. Risks and benefits of an epidural steroid injection were again reviewed. They include but are not limited to infection, worsening pain, no improvement in pain, bleeding, nerve damage and the patient elects to proceed. PROCEDURE NOTE: The patient was taken to the procedure area. He was assisted in getting on examination table. His back was sterilely prepped with a Betadine solution. Fluoroscopy using anterior, posterior as well as lateral viewing were implemented. A 17-gauge Tuohy was placed in the left paraspinous area using left paracentral approach after it had been infiltrated with 0.25% bupivacaine using a 25-gauge needle. Aspiration was negative. A total of 80 mg Depo-Medrol, 40 mg triamcinolone and 2 mL of 0.25% [place] [address] PAIN MANAGEMENT CONSULTATION Name: TARIK MARTE Room: [facility]#: [id number] Admission: 10/18/18 Attend Phys: Boone Adrian MD Discharge: Date of : 58 Report #: [id number] total of 18 seconds fluoroscopy time was used. The patient tolerated the procedure well. He remained in the pain clinic for an appropriate amount of time. He will follow up in the future as needed. We would like to thank you for letting us participate in his care. We hope he continues to improve. By: [id number] [id number]. Salazar Adrian MD /PHYLLIS
== END | disposition home or self-care (01) ==
LOC: M.PC 13:10
DX: M47.26 Other spondylosis with radiculopathy, lumbar region (principal); M47.27 Other spondylosis with radiculopathy, lumbosacral region; G89.29 Other chronic pain; M43.16 Spondylolisthesis, lumbar region; G47.33 Obstructive sleep apnea (adult) (pediatric); I10 Essential (primary) hypertension; M17.12 Unilateral primary osteoarthritis, left knee; Z79.899 Other long term (current) drug therapy; Z79.891 Long term (current) use of opiate analgesic; Z96.652 Presence of left artificial knee joint; Z79.82 Long term (current) use of aspirin; Z98.890 Other specified postprocedural states

== ENCOUNTER → 2019-01-31 | Outpatient (CLI) | payer OTHER ==
[~2019-01-31] MED LIST changes: +LISINOPRIL20 MG PO; -LISINOPRIL5 MG PO
--- NOTE | 2019-02-06 14:27 | PAINCON ---
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 HISTORY: The patient is a 58-year-old gentleman who has been followed in the pain clinic. As you recall, he suffers from left sciatic nerve irritation. He has a busy month. The spread systems is changing. They had his group move 800 people to another portion of the building. There was quite a bit of pushing and pulling involved. The patient has noticed an increase in his pain. He rates it as a 5/10. Also, notes some numbness in his right leg as well as back spasms. He has returned to the pain clinic with a hope of undergoing an epidural steroid injection. which has been beneficial in the past. ALLERGIES: No known drug allergies. CURRENT MEDICATIONS: Cyclobenzaprine 10 mg 1 p.o. t.i.d., gabapentin 300 mg 1 p.o. t.i.d., hydrocodone 7.5 mg one p.o. q. 4-6 hours p.r.n., lisinopril 5 mg daily, meloxicam 7.5 mg b.i.d., omeprazole 40 mg with meals, Depo-Testosterone 200 mcg weekly. PAIN CLINIC ASSESSMENT/PQRS: 1. The patient is being treated for osteoarthritic changes in his lower back. Has some arthritis in his left knee, which has been replaced. 2. Height 5 feet 7 inches, weight 210 pounds, BMI 32.9. 3. Vital signs: Blood pressure 156/87, heart rate 94, respiratory rate 16, room air saturation is 96%, temperature 98.5. 4. Pain intensity is 5/10. 5. Fall history: The patient has not fallen in the last 3 months. 6. Blood thinner. The patient is not on a blood thinning medication. 7. Hypertension. The patient is being treated for hypertension. 8. Opioid greater than 6 weeks. The patient is receiving medications from one source, the pain clinic. 9. Risk assessment tool, low for opioid use. 10. Functional assessment tool, low for opioid use. 11. Tobacco: The patient denies use of tobacco. 12. Alcohol: The patient denies use of alcoholic beverages. PHYSICAL EXAMINATION: [place] [address] PAIN MANAGEMENT CONSULTATION Name: TARIK MARTE Room: [facility]#: [id number] Admission: 01/31/19 Attend Phys: Boone Adrian MD Discharge: Date of : 58 Report #: [id number] GENERAL: The patient is a well-developed, well-nourished white male. Appears his stated age. He is alert and oriented x 3. His affect is appropriate. Speech is slow. HEENT: Normocephalic, atraumatic. Extraocular eye muscles intact. Sclerae nonicteric. Mucous membranes are moist. Appearance of possible strabismus in the past. ABDOMEN: Nontender. Bowel sounds present. MUSCULOSKELETAL: Without significant scoliosis, kyphosis, or lordosis. The patient has pain and discomfort that is radiating down to the left side of his leg with numbness and tingling in the L5-S1 dermatomal distribution. The patient has some numbness as well on the right side with weakness. Muscle strength is judged to be 5-/5 on the left side as well as 5-/5 for the contralateral side. Straight leg raise is positive on the left. IMPRESSION: 1. Lumbar radiculopathy involving the left and right leg. Most problematic on the left. 2. Spondylolisthesis, 1 cm grade 2. 3. 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 4. Sleep apnea. 5. Hypertension. 6. Less testosterone level. 7. is stable after follow up on her breast cancer. RECOMMENDATIONS: We discussed treatment options with the patient. Risks and benefits of an epidural steroid injection were again reviewed. They include but are not limited to infection, increased muscle soreness, headache, bleeding, worsening of pain, nerve damage and the patient elects to proceed. PROCEDURE NOTE: The patient was taken to the procedure area. He was then assisted in getting on the examination table. His back was sterilely prepped with a Betadine solution. Fluoroscopy using anterior, posterior as well as lateral viewing were implemented. The patient's back was infiltrated at the L5-S1 area on the left using the left paramedian approach through midline injection. A total of 80 mg Depo-Medrol, 40 mg triamcinolone, and 2 mL of 0.25% bupivacaine was injected at the L5-S1 area. The patient tolerated the procedure well. There were no complications. A script for his medications has been renewed. The patient will continue with Meloxicam 7.5 mg b.i.d., hydrocodone has been written for the next 3 months. He would also continue with Flexeril and gabapentin 300 mg 1 p.o. t.i.d. <ELECTRONICALLY SIGNED> By: Boone Adrian MD 02/06/19 1427 [id number] 1744N. Salazar Adrian MD /PMT
== END | disposition home or self-care (01) ==
LOC: M.PC 04:57
DX: M54.16 Radiculopathy, lumbar region (principal); M47.897 Other spondylosis, lumbosacral region; M43.16 Spondylolisthesis, lumbar region; I10 Essential (primary) hypertension; G47.30 Sleep apnea, unspecified; Z98.890 Other specified postprocedural states; Z79.891 Long term (current) use of opiate analgesic; Z79.899 Other long term (current) drug therapy; Z96.652 Presence of left artificial knee joint; Z79.82 Long term (current) use of aspirin

== ENCOUNTER → 2019-05-07 | Outpatient (CLI) | payer OTHER ==
[~2019-05-07] MED LIST changes: +MEDROLDOSEPACK PO
--- NOTE | 2019-05-29 09:09 | PAINCON ---
[address] [address] PAIN MANAGEMENT CONSULTATION Name: TARIK MARTE Room: [facility] Krunal#: [id number] Admission: 05/07/19 Attend Phys: Boone Adrian MD Discharge: Date of : 58 Report #: [id number] THIS REPORT FOR: //name// CC: Lulu Yoo DATE OF SERVICE: 05/07/2019 CHIEF COMPLAINT: Pain in the low back and I am here for medication renewal. HISTORY: The patient is a 58-year-old gentleman who has been followed in the Pain Clinic because of chronic pain. As you may recall, he has had problems with his low back area. He has undergone epidural steroid injections and found them beneficial. He has done reasonably well since the last injection. He was at work. States that he was on his back and trying to perform a certain activity by reaching his arm above his head. Since that time, he has had a significant amount of back pain. Describes it is pretty much as excruciating. He has had difficulty sleeping in bed. He does sleep in a recliner. He has been experiencing some spasms. Has been seen by a chiropractor. States that the pain that he was experiencing radiating down into his leg is not as problematic. The sciatic pain has improved and is not shooting as much as it had been. He still is having quite a bit of difficulty with activities of daily living, such as standing, sitting. Sitting in regular chairs is quite problematic. Sitting and riding a car can be problematic as well. He has tried CBD oil daily. Rates his pain as a 4/10. Feels that the hydrocodone, meloxicam, Flexeril and gabapentin continue to be useful. Notes that the pain is worse when he is walking, standing, sitting and has difficulty lying down. Massage, cold, rest and medications are helpful. He is contemplating going with his on a vacation. This is her 49th birthday anniversary. ALLERGIES: No known drug allergies. CURRENT MEDICATIONS: Cyclobenzaprine 10 mg 1 p.o. t.i.d., gabapentin 300 mg 1 p.o. t.i.d., hydrocodone 7.5 mg one p.o. q. 4-6 hours, lisinopril 5 mg, meloxicam 7.5 mg b.i.d., omeprazole 40 mg with meals, Depo-Testosterone 200 mcg weekly. PAIN CLINIC ASSESSMENT/PQRS: 1. The patient is being treated for osteoarthritis. The patient has some osteoarthritic changes in his low back area. Has had some arthritis in his left knee. This has been replaced. The patient is not being treated for rheumatoid arthritis. 2. Height 5 feet 7 inches, weight 216 pounds, BMI is 33.9. 3. Vital Signs: Blood pressure 154/96, heart rate 83, respiratory rate 16, room air saturation 96, temperature 98.2. [place] [address] PAIN MANAGEMENT CONSULTATION Name: TARIK MARTE LILO Room: [facility]#: [id number] Admission: 05/07/19 Attend Phys: Boone Adrian MD Discharge: Date of : 58 Report #: [id number] 4. Pain intensity, 11/14. 5. Fall history: The patient has not fallen in the last 3 months. 6. Blood thinner. The patient is not on a blood thinning medication. 7. Hypertension. The patient is being treated for hypertension. 8. Opioids greater than 6 weeks. The patient received medication from one source, the Pain Clinic. 9. Risk assessment tool, low for opioid use. 10. Functional assessment tool, low for opioid use. 11. Recreational drug use. The patient denies. 12. Tobacco: The patient denies use of tobacco. 13. Alcohol. The patient denies use of alcoholic beverages. PHYSICAL EXAMINATION: GENERAL: The patient is a well-developed, well-nourished white male. Appears his stated age. He is alert and oriented x 3. His affect is appropriate. Speech is fluent. HEENT: Normocephalic, atraumatic. Extraocular eye muscles intact. Sclerae nonicteric. Mucous membranes are moist. NECK: Without adenopathy or JVD. MUSCULOSKELETAL: Without significant scoliosis, kyphosis or lordosis. The patient does complain of significant pain and discomfort in his low back area while sitting upright in the chair. Constantly moves to reposition himself. Muscle strength in the upper extremity judged to be 5-/5 for the major muscle groups in the upper extremity and 5-/5 for the major muscle groups in the lower extremities. IMPRESSION: 1. Lumbar radiculopathy history with left and right leg and involvement. Most problematic in the left. 2. Spondylolisthesis 1 cm (grade 2). 3. Spondylolisthesis at L5-S1. 4. Sleep apnea. 5. Hypertension. 6. Low testosterone level. stable after breast cancer. RECOMMENDATIONS: We discussed treatment options with the patient. At this juncture, we will continue with his current medications. A script for hydrocodone 7.5 mg 1 p.o. q.i.d. have been rewritten. The patient will also continue with Flexeril 10 mg 1 p.o. t.i.d. He feels that the gabapentin is helpful. Neurontin 300 mg 1 p.o. t.i.d. has been provided. The patient will also continue with nonsteroidal anti-inflammatory medication, meloxicam. He is aware that opioid medications can be problematic in some people. He has taken the medication as prescribed. He has not shown any signs of addiction. He has taken the medication. They enable him to be gainfully employed[place] [address] PAIN MANAGEMENT CONSULTATION Name: TARIK MARTE LILO Room: [facility]#: [id number] Admission: 05/07/19 Attend Phys: Boone Adrian MD Discharge: Date of : 58 Report #: [id number] us if he has any concerns. A script for all the medications that we mentioned above have been provided. Hopefully, he has a good vacation with his on her 49th birthday anniversary. <ELECTRONICALLY SIGNED> By: Boone Adrian MD 05/29/19 0909 [id number] 1611N. Salazar Adrian MD /nt
== END ==
LOC: M.PC 04:45
DX: M54.16 Radiculopathy, lumbar region (principal); M43.16 Spondylolisthesis, lumbar region; M43.17 Spondylolisthesis, lumbosacral region; G47.30 Sleep apnea, unspecified; I10 Essential (primary) hypertension

== ENCOUNTER → 2019-08-13 | Outpatient (CLI) | payer OTHER ==
[~2019-08-13] MED LIST changes: +NEURONTIN600 MG PO
--- NOTE | ~2019-08-13 | PAINCON ---
[address] [address] PAIN MANAGEMENT CONSULTATION Name: TARIK MARTE Room: [facility] MIRZA Krunal#: [id number] Admission: 08/13/19 Attend Phys: Boone Adrian MD Discharge: Date of : 58 Report #: [id number] THIS REPORT FOR: //name// CC: Lulu Yoo DATE OF SERVICE: 08/13/2019 CHIEF COMPLAINT: Back and leg pain. HISTORY: The patient is a 58-year-old gentleman who has been followed in the pain clinic because of chronic pain. He has pain in the low back area. He has had pain that radiates down into his legs. He has undergone epidural steroid injections. They have been helpful. He returns today indicating that his pain is still somewhat problematic. He rates it as a 4/10. He has been quite busy at his job. 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 He has been in [place], [place], [place], [place], [place] and a number of other places. We will consider an epidural steroid injection when he returns to [place]. He has returned today with the hopes of renewing his medications. He finds that these medications are helpful. He feels that the gabapentin medication is helpful as well. He does have some numbness down in his feet and involving his toes. He has been seen by a chiropractor. He notes that pain is worse with walking and standing. Uses of medications, heat, hot as well as cold are helpful. He notes that massage and rest can be beneficial as well. ALLERGIES: No known drug allergies. CURRENT MEDICATIONS: Cyclobenzaprine 10 mg 1 p.o. t.i.d., gabapentin 600 mg 1 p.o. t.i.d., hydrocodone 7.5 mg 1 p.o. q.4-6 hours, lisinopril 5 mg, meloxicam 7.5 mg b.i.d., omeprazole 40 mg with meals, and Depo-Testosterone 200 mcg weekly. PAIN CLINIC ASSESSMENT AND PQRS: 1. The patient has some arthritic changes involving his low back area. He has some arthritis in his left knee. This has been replaced. He is not being treated for rheumatoid arthritis. 2. Height 5 feet 7 inches, weight 214 pounds, BMI is 33.3. 3. Vital Signs: Blood pressure 144/103, heart rate 83, respiratory rate 16, room air saturation 96%, and temperature 97.8. 4. Pain score is 4/10. 5. Fall history: The patient has not fallen in the last 3 months. 6. Blood thinner. The patient is not on a blood thinning medication. 7. Hypertension. The patient is being treated for hypertension. 8. Opioids greater than 6 weeks. The patient received medication from one source, [place] [address] PAIN MANAGEMENT CONSULTATION Name: TARIK AMRTE LILO Room: [facility]#: [id number] Admission: 08/13/19 Attend Phys: Boone Adrian MD Discharge: Date of : 58 Report #: [id number] 9. Risk assessment tool, low for opioid use. 10. Functional assessment tool, low. This has been reviewed. 11. Recreational drug use: The patient denies. 12. Tobacco: The patient denies use of tobacco. 13. Alcohol: The patient denies use of alcoholic beverages. PHYSICAL EXAMINATION: GENERAL: The patient is a well-developed, well-nourished white male. He appears his stated age. He is alert and oriented x 3. His affect is appropriate. Speech is fluent. HEENT: Normocephalic, atraumatic. Extraocular eye muscles intact. Sclerae nonicteric. Mucous membranes are moist. NECK: Without adenopathy or JVD. MUSCULOSKELETAL: Without significant scoliosis, kyphosis or lordosis. The patient has some numbness and tingling down his feet. He has pain in the lower extremity. Muscle strength judged to be 5-/5 for the major muscle groups in the lower extremity, 5-/5 for the upper extremities. IMPRESSION: 1. Lumbar radiculopathy history with left and right involvement. 2. History of spondylolisthesis 1 cm (grade 2 changes). 3. Spondylolisthesis at L5-S1. 4. Sleep apnea. 5. Hypertension. 6. Low testosterone level. RECOMMENDATIONS: We discussed treatment options with the patient. At this juncture, we will continue with his medications. He feels that the medications of meloxicam are helpful. He feels that the medications are working reasonably well. He has not noticed any problems with his GI at this juncture. He also feels hydrocodone is beneficial. He would like to continue with this medication. He notes that with his job, bending and twisting can be somewhat problematic and his medication is efficacious. He feels that the gabapentin 600 mg 1 p.o. t.i.d. is helpful and would like to continue with that medication. He continues with Flexeril. He feels that this medication is helpful with the muscle spasms. He is not having any significant problems with oversedation because of the Flexeril medication. A script for his medications has been rewritten. He will continue with the hydrocodone 7.5 mg 1 p.o. q.i.d. We will continue with Flexeril 10 mg 1 p.o. t.i.d. We will continue with ibuprofen 600 mg 1 p.o. t.i.d. He will call us if he has any concerns. He will return to the Pain Clinic in the near future, at which time he will then undergo an epidural steroid injection because of the pain and discomfort, which he is experiencing, which radiates down in the left as well as the right L5-S[place] [address] PAIN MANAGEMENT CONSULTATION Name: TARIK MARTE GENE Room: [facility]#: [id number] Admission: 08/13/19 Attend Phys: Boone Adrian MD Discharge: Date of : 58 Report #: [id number] We would like to thank you for letting us participate in his care. We hope he continues to improve. By: [id number] Adrian MD /nt
== END ==
LOC: M.PC 10:47
DX: M43.17 Spondylolisthesis, lumbosacral region (principal); M54.16 Radiculopathy, lumbar region; G47.30 Sleep apnea, unspecified; I10 Essential (primary) hypertension; Z79.891 Long term (current) use of opiate analgesic; Z79.899 Other long term (current) drug therapy

== ENCOUNTER → 2019-09-12 | Outpatient (CLI) | payer OTHER ==
--- NOTE | 2019-09-17 08:37 | PAINCON ---
[address] [address] PAIN MANAGEMENT CONSULTATION Name: TARIK MARTE Room: [facility] MarthaElsa#: [id number] Admission: 09/12/19 Attend Phys: Boone Adrian MD Discharge: Date of : 58 Report #: [id number] THIS REPORT FOR: //name// cc: Isac Hancock Linda J. DO ~ THIS REPORT FOR: //name// CC: ISAC Ybarra DATE OF SERVICE: 09/12/2019 CHIEF COMPLAINT: Low back and pain down into the feet. HISTORY: The patient is a 58-year-old gentleman who has been followed in the pain clinic because of lumbar radiculopathy. He has found epidural steroid injections to be helpful. He has a job where he leaves the city for a number of days. He has a strenuous job. 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 He has returned and finds his pain has increased. He rates it as 6 out of 10. He has noticed a worsening of pain and discomfort. He is experiencing back spasms almost constantly. Has pain down into his feet with numbness. Epidural steroid injections in the past have been helpful. Left leg is the area, which is most uncomfortable. He does find his medications helpful. Hydrocodone and gabapentin are beneficial. Rates his pain as a 70%-80% with his current medical regimen. He has returned today with hopes of undergoing an epidural steroid injection to help quell the pain and discomfort he is experiencing. ALLERGIES: No known drug allergies. CURRENT MEDICATIONS: Cyclobenzaprine 10 mg 1 p.o. t.i.d., gabapentin 600 mg 1 p.o. t.i.d., hydrocodone 7.5 mg one p.o. q. 4-6 hours, lisinopril 5 mg, meloxicam 7.5 mg, omeprazole 40 mg with meals, and Depo-Testosterone 200 mcg weekly. PAIN CLINIC ASSESSMENT/PQRS: 1. The patient has some arthritic changes involving his low back. He has pain involving his left knee. It has been replaced. He is not being treated for rheumatoid arthritis. 2. Height 5 feet 7 inches, weight 216 pounds, BMI is 33.8. 3. Vital Signs: Blood pressure 158/103, heart rate 79, respiratory rate 16, room air saturation is 94%, temperature 98.5. 4. Pain intensity 6/10. 5. Fall history: The patient has not fallen in the last 3 months. 6. Blood thinner. The patient is not [place] [address] PAIN MANAGEMENT CONSULTATION Name: TARIK MARTE GENE Room: [facility]#: [id number] Admission: 09/12/19 Attend Phys: Boone Adrian MD Discharge: Date of : 58 Report #: [id number] 7. Hypertension. The patient is being treated for hypertension. 8. Opioids greater than 6 weeks. The patient receives medication from one source the pain clinic. 9. Risk assessment tool, low for opioid use. 10. Functional assessment tool has been reviewed. 11. Recreational drug use: The patient denies. 12. Tobacco: The patient denies. 13. Alcohol: The patient denies use of alcoholic beverages. PHYSICAL EXAMINATION: GENERAL: The patient is a well-developed, well-nourished white male. Appears his stated age. He is alert and oriented x 3. His affect is appropriate. Speech is fluent. HEENT: Normocephalic, atraumatic. Extraocular eye muscles intact. Sclerae nonicteric. Mucous membranes are moist. NECK: Without adenopathy or JVD. HEART: Regular rate. LUNGS: Clear. ABDOMEN: Nontender. MUSCULOSKELETAL: Upper extremity muscle strength is without significant scoliosis, kyphosis, or lordosis. The patient has some numbness and tingling in the lower portion of his back with pain radiating down in the L5-S1 dermatomal distribution on the left side. Muscle strength judged to be 5-/5 for the major muscle groups. Positive straight leg raise. IMPRESSION: 1. Lumbar radiculopathy with history of left and right involvement. 2. History of spondylolisthesis 1 cm, grade 2 changes at L5-S1. 3. Sleep apnea. 4. Hypertension. 5. Low testosterone level. RECOMMENDATIONS: We discussed treatment options with the patient. At this juncture, we will proceed with an epidural steroid injection. He has had injections in the past. They have proven beneficial. Risks and benefits of the procedure, which could include but are not limited to infection, worsening pain, no improvement in pain were discussed and the patient elects to proceed. PROCEDURE NOTE: The patient was taken to the procedure area. He was then assisted in getting on examination table. His back was sterilely prepped at the L5-S1 area with a Betadine solution. A 0.25% bupivacaine was used to inject at the L5-S1 area to numb the area. A 17-gauge Tuohy with loss of resistance technique was used to gain access to the epidural space after this area had been numbed. Aspiration was negative. There was no CSF, heme, or paresthesia. Total of 80 mg of Depo-Medrol, 40 mg of triamcinolone was injected. The patient tolerated the procedure well. A total of 11 seconds [place] [address] PAIN MANAGEMENT CONSULTATION Name: TARIK MARTE Room: [facility]#: [id number] Admission: 09/12/19 Attend Phys: Boone Adrian MD Discharge: Date of : 58 Report #: [id number] The patient's pain decreased from 6 to 3 at the time of discharge. He will follow up in the future as needed. We would like to thank you for letting us participate in his care. He has been provided with a renewal of his medications. A script for hydrocodone 7.5 mg one p.o. q. 4-6 hours, 120 tablets have been provided for the next 3 months. He will also continue with Flexeril 10 mg 1 p.o. t.i.d. He will use gabapentin 600 mg 1 p.o. t.i.d. He will also continue with the nonsteroidal anti-inflammatory medication, Mobic 7.5 mg 1 p.o. b.i.d. He will call us if he has any concerns. Questions were sought and answered. <ELECTRONICALLY SIGNED> By: Boone Adrian MD 09/17/19 0837 [id number]. MD JOSE MANUEL Rome
== END | disposition home or self-care (01) ==
LOC: M.PC 04:28
DX: M54.16 Radiculopathy, lumbar region (principal); G89.29 Other chronic pain; I10 Essential (primary) hypertension; G47.30 Sleep apnea, unspecified; E29.1 Testicular hypofunction; Z98.890 Other specified postprocedural states; Z79.899 Other long term (current) drug therapy; Z79.891 Long term (current) use of opiate analgesic; Z79.82 Long term (current) use of aspirin

== ENCOUNTER → 2020-01-28 | Outpatient (CLI) | payer OTHER ==
--- NOTE | 2020-02-13 15:59 | PAINCON ---
[address] [address] PAIN MANAGEMENT CONSULTATION Name: TARIK MARTE Room: [facility] NatashaCarina#: [id number] Admission: 01/28/20 Attend Phys: Boone Adrian MD Discharge: Date of : 58 Report #: [id number] THIS REPORT FOR: //name// cc: Lulu Hancock Linda J. DO ~ THIS REPORT FOR: //name// CC: Lulu Adrian DATE OF SERVICE: 01/28/2020 CHIEF COMPLAINT: Low back pain. HISTORY: The patient is a 59-year-old gentleman who has been followed in the pain clinic because of chronic pain. He does suffer from low back discomfort. In the past, he has undergone epidural steroid injection. He found them to be very helpful. His last injection was in 09/2018. He has been off from work because of the Covid-19 pandemic. He has noticed that his back has been tightening up. He rates his pain today as 3-4/10. He continues to have his medications. They are beneficial. He feels that the meloxicam to help with back discomfort. Finds that hydrocodone is helpful with the pain. He has used Flexeril to help with muscle spasm as well as gabapentin helps with his discomfort as well. Pain is worse with prolonged standing and walking. Notes that use of his medications, heat, cold, rest, and massage are beneficial and helpful. He has returned today with the desire to have his medications renewed. He is not having any complication from their use. ALLERGIES: No known drug allergies. CURRENT MEDICATIONS: Flexeril 10 mg 1 p.o. t.i.d., gabapentin 600 mg 1 p.o. t.i.d., hydrocodone 7.5 mg one p.o. q. 4-6 hours, lisinopril 5 mg, meloxicam 7.5 mg, omeprazole 40 mg with meals, Depo-Testosterone 200 mcg weekly. PAIN CLINIC ASSESSMENT AND PQRS: 1. The patient does have some changes in arthritis involving his back. He also has some involving his left knee. It has been replaced. He is not being treated for rheumatoid arthritis. 2. Height 5 feet 7 inches, weight 223 pounds, BMI is 33.8. 3. Vital signs: Blood pressure 138/83, heart rate 87, respiratory rate 16, room air saturation 95%, temperature 98.2. 4. Pain intensity 3-4/10. 5. Fall history: The patient has not fallen in the last 3 months. 6. Blood thinner. The patient is not on a blood thinning medication. 7. Hypertension. The patient is being treated for hypertension. 8. Opioids greater than 6 weeks. The patient [place] [address] PAIN MANAGEMENT CONSULTATION Name: TARIK MARTE Room: [facility]#: [id number] Admission: 01/28/20 Attend Phys: Boone Adrian MD Discharge: Date of : 58 Report #: [id number] clinic. 9. Risk assessment tool, low for opioid use. 10. Functional assessment tool reviewed. 11. Recreational drug use. The patient denies. 12. Tobacco: The patient denies. 13. Alcohol. The patient denies use of alcoholic beverages. PHYSICAL EXAMINATION: GENERAL: The patient is a well-developed, well-nourished white male. Appears his stated age. He is alert and oriented x 3. His affect is appropriate. Speech is fluent. HEENT: Normocephalic, atraumatic. Extraocular eye muscles intact. Sclerae nonicteric. Mucous membranes are moist. NECK: Without adenopathy or JVD. HEART: Regular rate. LUNGS: Clear to auscultation. ABDOMEN: Nontender. EXTREMITIES: Upper extremity muscle strength judged to be 5/5 for the major muscle groups in the upper extremity. The patient without significant scoliosis, kyphosis, or lordosis. Lower extremity is judged 5-/5 for the major muscle groups. The patient has pain in the low back area in the L5-S1 region. IMPRESSION: 1. Lumbar radiculopathy with history of left and right side involvement. 2. History of spondylolisthesis 1 cm, grade 2 changes at L5-S1. 3. Sleep apnea. 4. Hypertension. 5. Low testosterone level. RECOMMENDATIONS: We discussed treatment options with the patient. Risk and benefits of opioid medications again have been discussed. The patient is aware that these medications can become problematic for some people. He has taken the medication as prescribed and has not had any complications. He finds this beneficial. A script for hydrocodone 7.5 mg one p.o. q. 6 hours p.r.n. has been provided. A 3 months prescription for that medication has been written. The patient will also continue with the Flexeril medication 10 mg 1 p.o. t.i.d. He will continue with the meloxicam 1 p.o. b.i.d. Of note, his GI status, should he has some GI complaints, he will stop taking the Mobic medication. We would like to thank you for letting us participate in his care. We hope he continues to improve. His medications have been sent to his pharmacy. <ELECTRONICALLY SIGNED> By: Boone Adrian MD 02/13/20 1559 [id number]. Salazar Adrian MD /nt
== END ==
LOC: M.PC 04:35
PROVIDERS: ATTEND Anesthesiology Pain Medicine
DX: M54.5 Low back pain (principal); G47.33 Obstructive sleep apnea (adult) (pediatric); I10 Essential (primary) hypertension; E29.1 Testicular hypofunction; F11.20 Opioid dependence, uncomplicated; Z79.899 Other long term (current) drug therapy; Z87.39 Personal history of other diseases of the musculoskeletal system and connective tissue

== ENCOUNTER → 2020-02-26 | Outpatient (CLI) | payer OTHER | LOC: M.CT 13:00 | PROVIDERS: ATTEND Family Medicine | DX: J84.10 Pulmonary fibrosis, unspecified (principal); R93.89 Abnormal findings on diagnostic imaging of other specified body structures ==

== ENCOUNTER → 2020-04-02 | Outpatient (CLI) | payer OTHER ==
--- NOTE | ~2020-04-02 | PAINCON ---
[address] [address] PAIN MANAGEMENT CONSULTATION Name: TARIK MARTE Room: [facility] Krunal#: [id number] Admission: 04/02/20 Attend Phys: Boone Adrian MD Discharge: Date of : 58 Report #: [id number] THIS REPORT FOR: //name// cc: Isac Hancock Linda J. DO ~ THIS REPORT FOR: //name// CC: ISAC Ybarra DATE OF SERVICE: 04/03/2020 CHIEF COMPLAINT: Return of back pain. HISTORY: The patient is a 59-year-old gentleman who has been followed in the Pain Clinic because of chronic pain. He has undergone epidural steroid injections in the past. These proved beneficial for a number of months. He has been working. He has noticed an increase in pain and discomfort. He rates it as a 6/10. He does have somewhat of a demanding job with lifting and bending. He often works in an office setting, moving items around. He has returned today with the hopes of undergoing another epidural steroid injection to help his pain. ALLERGIES: No known drug allergies. CURRENT MEDICATIONS: Flexeril 10 mg 1 p.o. t.i.d., gabapentin 600 mg 1 p.o. t.i.d., hydrocodone 7.5 mg one p.o. q. 4-6 hours, lisinopril 5 mg, meloxicam 7.5 mg, omeprazole 40 mg with meals, Depo-Testosterone 200 mcg weekly. PAIN CLINIC ASSESSMENT/PQRS: 1. The patient does have some arthritic changes involving his back. He also has some involving his left knee. It has been replaced. The patient is not being treated for rheumatoid arthritis. 2. Height 5 feet 7 inches, weight 211 pounds, BMI is 33. 3. Vital signs: Blood pressure 149/100, pulse 96, respiratory rate 18, room air saturation 99%. 4. Pain intensity, 01/14. 5. Fall history: The patient has not fallen in the last 3 months. 6. Blood thinner. The patient is not on a blood thinning medication. 7. Hypertension. The patient is being treated for hypertension. 8. Opioids greater than 6 weeks. The patient receives medication from one source, Pain Clinic. 9. Risk assessment tool, low for opioid use. 10. Functional assessment tool reviewed. 11. Recreational drug use. [place] [address] PAIN MANAGEMENT CONSULTATION Name: TARIK MARTE Room: [facility]#: [id number] Admission: 04/02/20 Attend Phys: Boone Adrian MD Discharge: Date of : 58 Report #: [id number] 12. Tobacco: The patient denies. 13. Alcohol. The patient denies use of alcoholic beverages. PHYSICAL EXAMINATION: GENERAL: The patient is a well-developed, well-nourished white male. Appears his stated age. He is alert and oriented x 3. His affect is appropriate. Speech is fluent. HEENT: Normocephalic, atraumatic. Extraocular eye muscles intact. Sclerae nonicteric. Mucous membranes are moist. The patient is wearing a face covering. NECK: Without adenopathy or JVD. HEART: Regular rate. LUNGS: Clear to auscultation. ABDOMEN: Nontender. EXTREMITIES: Upper extremity muscle strength is judged to be 5/5 for the major muscle groups in the upper extremity. The patient is without significant scoliosis, kyphosis or lordosis. Lower extremity, the patient has pain, which is radiating down in the L5-S1 dermatomal distribution in his usual fashion with numbness and weakness associated with it. IMPRESSION: 1. Lumbar radiculopathy with history of left and right-sided involvement. 2. History of spondylolisthesis 1 cm, grade 2 changes at L5-S1. 3. Sleep apnea. 4. Hypertension. 5. Low testosterone level. RECOMMENDATIONS: We discussed treatment options with the patient. At this juncture, we will proceed with an epidural steroid injection. Risks and benefits of the procedure were again discussed. They include but are not limited to infection, worsening of pain, no improvement in pain, nerve damage, bleeding, spinal headache and the patient elects to proceed. We discussed the problems with COVID-19. It is pandemic. Steroid injections can decrease one's immune reaction. Should the patient become infected, he may have a more difficult course. He is aware and elects to proceed. PROCEDURE NOTE: The patient was taken to the procedure area. He was then assisted in getting on the examination table. His back was sterilely prepped at the L5-S1 area. A 0.25% bupivacaine was infiltrated using a 25-gauge needle. After the appropriate area at L5-S1 was anesthetized, a 17-gauge Tuohy with loss of resistance technique was used to gain access to the epidural space. There was no CSF, heme or paresthesia. Total of 80 mg Depo-Medrol, 40 mg triamcinolone and 2 mL of 0.25% bupivacaine was injected. The patient tolerated the procedure well. He remained in the Pain Clinic for an appropriate amount of time. A script for his medications were renewed. [place] [address] PAIN MANAGEMENT CONSULTATION Name: LEIGH MARTEMARICEL NAGY Room: [facility] Krunal#: [id number] Admission: 04/02/20 Attend Phys: Boone Adrian MD Discharge: Date of : 58 Report #: [id number] We would like to thank you for letting us participate in his care. We hope he continues to improve. By: [id number]. Salazar Adrian MD /nt
== END | disposition home or self-care (01) ==
LOC: M.PC 10:00
PROVIDERS: ATTEND Anesthesiology Pain Medicine
DX: M54.16 Radiculopathy, lumbar region (principal); G89.29 Other chronic pain; G47.30 Sleep apnea, unspecified; I10 Essential (primary) hypertension; Z79.899 Other long term (current) drug therapy; Z87.39 Personal history of other diseases of the musculoskeletal system and connective tissue

== ENCOUNTER → 2020-07-23 | Outpatient (CLI) | payer OTHER | END | disposition home or self-care (01) | LOC: M.PC 10:52 | PROVIDERS: ATTEND Anesthesiology Pain Medicine | DX: M54.16 Radiculopathy, lumbar region (principal); G89.29 Other chronic pain; I10 Essential (primary) hypertension; G47.30 Sleep apnea, unspecified; Z98.890 Other specified postprocedural states; Z79.899 Other long term (current) drug therapy; Z88.8 Allergy status to other drugs, medicaments and biological substances ==

== ENCOUNTER → 2020-10-29 | Outpatient (CLI) | payer OTHER ==
[~2020-10-29] MED LIST changes: +FLOMAX0.4 MG PO
== END ==
LOC: M.PC 08:20
PROVIDERS: ATTEND Anesthesiology Pain Medicine
DX: M43.17 Spondylolisthesis, lumbosacral region (principal); M54.16 Radiculopathy, lumbar region; G47.30 Sleep apnea, unspecified; I10 Essential (primary) hypertension; E29.1 Testicular hypofunction

== ENCOUNTER → 2021-01-21 | Outpatient (CLI) | payer OTHER ==
[~2021-01-21] MED LIST changes: +PROAIR HFA8.5 GM INH
== END | disposition home or self-care (01) ==
LOC: M.PC 08:12
PROVIDERS: ATTEND Anesthesiology Pain Medicine
DX: M54.16 Radiculopathy, lumbar region (principal); I10 Essential (primary) hypertension; G47.30 Sleep apnea, unspecified; Z79.899 Other long term (current) drug therapy; Z98.890 Other specified postprocedural states

== ENCOUNTER → 2021-05-06 | Outpatient (CLI) | payer OTHER | LOC: M.PC 11:20 | PROVIDERS: ATTEND Anesthesiology Pain Medicine | DX: M54.16 Radiculopathy, lumbar region (principal); G47.00 Insomnia, unspecified; I10 Essential (primary) hypertension; E29.1 Testicular hypofunction; Z79.82 Long term (current) use of aspirin; Z79.899 Other long term (current) drug therapy ==

== ENCOUNTER → 2021-07-29 | Outpatient (CLI) | payer OTHER | END | disposition home or self-care (01) | LOC: M.PC 08:06 | PROVIDERS: ATTEND Anesthesiology Pain Medicine | DX: M54.16 Radiculopathy, lumbar region (principal); G89.29 Other chronic pain; M43.17 Spondylolisthesis, lumbosacral region; I10 Essential (primary) hypertension; G47.30 Sleep apnea, unspecified; Z98.890 Other specified postprocedural states; Z79.899 Other long term (current) drug therapy ==